=== PATIENT | female | born 1955 | race Caucasian/White ===

== ENCOUNTER 2016-09-08 12:02 | Emergency (ER) | payer MEDICARE, MEDICAID ==
[~2016-09-08] VITALS: Ht 170.2 cm; Wt 136.4 kg
[~2016-09-08 12:02] MED LIST: ALBU8.5H4 INHALATION; BUPR100T15 PO; HYDR-4003 PO; HYDR25TA4 PO; KLO1T PO; LEVO100T6 PO; LOVENOX BRIDGING; METH750T3 PO; MOME13HF3 IH; NITR0.4T SL; OMEP20CA11 PO; OXYB15TA PO; SIMV40TA5 PO; SUMA50TA31 PO; WARF10TA4 PO; ZYL100 PO
[2016-09-08 12:07] VITALS: BP 124/54; PULSE 79; RESP 14; O2SAT 97
[2016-09-08 12:22] LABS: BASOPHILS % (AUTO) 0.6 % (0-3); EOSINOPHILS % (AUTO) 2.3 % (0-5); MONOCYTES % (AUTO) 5.9 % (4-12); Mean Corpuscular Hemoglobin 29.1 pg (27.0-35.0); NEUTROPHILS % (AUTO) 64.9 % (40-74); Platelet Count 201 bil/L (150-400)
--- NOTE | 2016-09-08 12:46 | DRSVH ---
PROCEDURE: X-RAY CHEST ONE VIEW, PORTABLE ([id number]) INDICATIONS: CHEST PAIN TECHNIQUE: One view of the chest was acquired. COMPARISON: [facility], CR, XR CHEST 1VW (PORTABLE), 04/12/2016, 12:22. FINDINGS: Surgical changes and devices: None. Lungs and pleura: No pleural effusions or pneumothorax. Lungs are clear, aside from left upper lobe calcified granuloma which is unchanged. Mediastinum: Mediastinal contours appear normal. Heart size is normal. Bones and chest wall: No suspicious bony lesions. Overlying soft tissues appear unremarkable. IMPRESSION: No acute cardiopulmonary disease. Dictated by: Wilmer Santiago RRA Interpreted: Vickie Graff MD on 09/08/2016 at 12:45 Transcribed by: SAIDA on 09/08/2016 at 12:46 Approved by: Vickie Graff MD, PhD on 09/09/2016 at 11:00
[2016-09-08 12:53] LABS: TROPONIN T 0.01 ug/L (0.0-0.011)
[2016-09-08 13:04] LABS: Magnesium 1.8 mg/dL (1.6-2.6)
[2016-09-08] MEDS ORDERED: Ketorolac 30 mg/mL 2 mL Inj IM ONE (13:10)
--- NOTE | 2016-09-08 13:26 | ED.REPORT ---
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 She has a chronic orthopedic issue with her right foot which greatly restrticts her mobility, and makes her functionally home bound. Her most recent INR was 1.7 yesterday, she has been titrating back up following interupption of her Warfarin for wisdom tooth extraction 2 weeks ago. She denies recent hemoptysis, hormonal therapy, or priti immobilization. Nursing Notes Stated Complaint: CHEST PAIN Chief Complaint: Chest Pain Nursing Notes Reviewed: Yes Allergies: Coded Allergies: Sulfa (Sulfonamide Antibiotics) (Verified Allergy, Severe, resp distress, 02/04/16) Iodinated Contrast Media - Oral and (Unverified Allergy, Mild, 02/04/16) Influenza Virus Vaccines (Verified Allergy, Unknown, breathing difficulty , 04/12/16) hydrocodone (Verified Allergy, Unknown, UNKNOWN, 02/04/16) ibuprofen (Verified Allergy, Unknown, chest swelling and difficulty breathing, 04/12/16) pneumococcal vaccine (Verified Allergy, Unknown, trouble breathing, ) Uncoded Allergies: STATINS (Allergy, Unknown, UNKNOWN, 03/26/15) Scheduled Allopurinol (Allopurinol) 100 Mg Tablet 100 MG PO TID Bupropion (Bupropion) 100 Mg Tablet 100 MG PO BID Hydrochlorothiazide (Hydrochlorothiazide) 25 Mg Tablet 25 MG PO DAILY Levothyroxine (Levothyroxine) 100 Mcg Tablet 100 MCG PO DAILY Mometasone Furoate (Asmanex Hfa) 100 Mcg/Actuation Hfa.aer.ad 13 GM IH DAILY Omeprazole (Omeprazole) 20 Mg Capsule.dr 20 MG PO DAILY Oxybutynin Chloride ER (Oxybutynin Chloride ER) 15 Mg Tab.er.24 15 MG PO BID Simvastatin (Simvastatin) 40 Mg Tablet 40 MG PO HS Sumatriptan Succinate (Imitrex) 50 Mg Tablet 50 MG PO PRN Scheduled PRN Albuterol HFA (Albuterol HFA) 8.5 Gm Hfa.aer.ad 1 PUFF INHALATION Q4H PRN PRN For Shortness of Breath Clonazepam (Clonazepam) 1 Mg Tablet 1 MG PO BID PRN PRN For Anxiety Hydrocodone-Acetaminophen 5-325 mg (Hydrocodone-Acetaminophen 5-325 mg) 1 Each Tablet 1 TABLET PO Q6H PRN PRN For Pain Methocarbamol (Methocarbamol) 750 Mg Tablet 750 MG PO QID PRN PRN For Spasm Nitroglycerin SL (Nitrostat) 0.4 Mg Tab.subl 0.4 MG SL Q5MIN PRN PRN ANGINA Warfarin Sodium (Warfarin Sodium) 10 Mg Tablet 10-15 MG PO DAILY PRN PRN UD Miscellaneous Medications ([Lovenox Bridging]) General Time Seen by MD: 12:45 Chief Complaint Chest pain Hx Obtained From: Patient Arrived By: Walk-in Sudden in Onset?: No Onset Occurred: 1 - 4 hours ago Symptom Duration: Waxes and wanes Location: : Chest left Quality: Aching, Throbbing Radiation: : Does not radiate Severity: Current: Moderate Severity: Maximum: Moderate Recent Healthcare: Recent doctor visit Similar Sx Previous: No Risk Factors )( CAD Risk Stratification Hyperlipidemia Hypertension Known CADNo Amphetamine, No Cocaine, No Diabetes mellitus, No Family history, No Smoking Risk factors reviewed )( TAD Risk Stratification HypertensionNo 1st degree relative, No Aortic valve disease, No Coarctation of aorta, No Susy-Danlos syndrome, No High intensity wt lifting, No Inflamm dx / vasculitis, No Loeys-Moon syndrome, No Marfan's syndrome, No Other genetic predisp, No Pre-exist aortic aneurysm, No , No Turners Syndrome Risk factors reviewed )( PE Risk Stratification Surgery Last 60 DaysNo Coagulation Disorder, No Estrogen Medicine / BCP's, No [place], No Immobilization, No Malignancy, No Other, No , No , No Previous DVT, No Previous PE, No Trauma Risk factors reviewed Past Medical History Past Medical History Obesity, pulmonary embolism in left lung in 2010, on Warfarin. MT, TIA in 1996, Hypothyroid, GERD, diverticulosis, gout. Anxiety Reports: Asthma, Hyperlipidemia, Hypertension Reports: Depression Past Surgical History Bladder surgery IVC filter Parathyroidectomy x3 node removal Foot surgery Reports: Hysterectomy Smoking History Never Smoker Social History Alcohol Use: Denies alcohol use Ambulatory Status Independent Review of Systems Respiratory: Reports: Dyspnea on exertion, Pleuritic pain, Shortness of breath Cardiovascular: Reports: Chest pain Complete sys rev & neg: except as marked. Physical Exam Initial Vital Signs Vital Signs (First) Date Time Temp Pulse Resp B/P Pulse Ox O2 Delivery O2 Flow Rate FiO2 09/08/16 12:07 36.8 79 14 124/54 97 Room Air Initial VS: Reviewed Interpretation & Diagnostics Lab Results Interpretation Result Diagram: 09/08/16 1219 09/08/16 1219 Test 09/08/16 12:19 09/08/16 14:50 09/08/16 15:23 White Blood Count 4.7th/mm3 (3.8-10.1) Red Blood Count 4.33mil/mm3 (3.90-5.20) Hemoglobin 12.6g/dL (12.0-15.6) Hematocrit 39.4% (35.0-46.0) Mean Corpuscular Volume 91.0fL (81-100) Mean Corpuscular Hemoglobin 29.1pg (27.0-35.0) Mean Corpuscular Hemoglobin Concent 32.0% (32.0-37.0) Red Cell Distribution Width 14.5% (12.3-15.4) Platelet Count 201bil/L (150-400) Neutrophils (%) (Auto) 64.9% (40-74) Lymphocytes (%) (Auto) 26.3% (14-46) Monocytes (%) (Auto) 5.9% (4-12) Eosinophils (%) (Auto) 2.3% (0-5) Basophils (%) (Auto) 0.6% (0-3) Prothrombin Time 14.4sec (8.1-12.5) Prothromb Time International Ratio 1.34ratio Activated Partial Thromboplast Time 27.6sec (22.8-33.0) D-Dimer < 0.5mg/L (<0.50) Sodium Level 139mEq/L (134-144) Potassium Level 3.8mEq/L (3.5-5.2) Chloride Level 102mEq/L (97-108) Carbon Dioxide Level 24mmol/L (18-29) Blood Urea Nitrogen 10mg/dL (8-27) Creatinine 0.91mg/dL (0.57-1.00) Estimat Glomerular Filtration Rate 90mL/min (>59) Glucose Level 113mg/dL (60-99) Calcium Level 9.1mg/dL (8.5-10.1) Magnesium Level 1.8mg/dL (1.6-2.6) Total Bilirubin 0.3mg/dL (0.0-1.2) Aspartate Amino Transf (AST/SGOT) 18U/L (0-50) Alanine Aminotransferase (ALT/SGPT) 15U/L (0-32) Alkaline Phosphatase 109U/L (25-165) Total Protein 7.1g/dL (6.4-8.4) Albumin 4.0g/dL (3.4-5.0) Hold Urine Received (Received) Troponin T < 0.010ug/L (0.0-0.011) Re-Eval/Medical Decision Med Decision/Clinical Course Patient with Trop negative x2, D-Dimer negative, and improvement with both Toradol and magic mouthwash suggestive of costro-chondritis with likley secondary esophagitis related to her chronic esophageal issues which may be referring pain. She has been instructed to seek medical attention is her pain does not improve with NSAIDs, or her breathing or clinical status fails to improve in the coming days. Counseled Regarding: Diagnosis, Lab results, Need for follow-up, When/why to return to ED Discharge & Departure Shift Change Sign-Out Patient Care Transferred: No Discussed Complaint(s): Yes Laboratory Evaluation: Lab evaluation discussed Response to Therapy: Improved Primary Impression: Chest pain, non-cardiac Disposition: Home Discharge Condition All VS Reviewed: Yes Condition: Stable Patient Instructions: Chest Pain (ED) Additional Instructions: If you cough up any blood, your chest pain worsens, or you become increasingly short of breath please come back to the emergency department for further evaluation. At this point it does not appear that you are having an active problem in your heart or lungs based upon our evaluation. This is most likely a combination of inflammation and irritation of the esophagus causing irritation and referred pain to the chest wall. Take Ibuprofen or Acetaminophen as needed for pain. Referrals: Kellee Garcia DO (PCP) EDSupervising Provider for APC: Lamonte Barnett MD Attending Statement Discussed patient with resident and agree with plan as above. EVALUATED PATIENT INDEPENDENTLY AND AGREE WITH PLAN. In brief, 61-year-old female with history of CAD presenting with chest pain since last night. Also history of esophagitis. Her pain resolved with GI cocktail. Troponins negative 2. D- dimer negative. No EKG changes. Likely GI etiology given resolution with GI cocktail and history of esophagitis. We will discharge home with plan to take PPI. copies to: Kellee Garcia David E DO Sep 08, 2016 13:26 Lamonte Barnett MD Sep 08, 2016 18:08
[2016-09-08 13:35] VITALS: BP 129/59; PULSE 77; RESP 22; O2SAT 98
[2016-09-08 14:07] LABS: INR 1.34 ratio
[2016-09-08] MEDS ORDERED: LidocaineVisc 2%:Antacid 1:1 10 mL Syringe PO ONE (15:20)
[2016-09-08 17:02] VITALS: BP 138/69; PULSE 76; RESP 17; O2SAT 98
[2016-10-26] MEDS ORDERED: PANT40TA3 PO (08:45)
== END 2016-09-08 16:20 | disposition home or self-care (01) ==
LOC: SED 12:02
DX: R07.89 Other chest pain (principal); I25.2 Old myocardial infarction; K21.9 Gastro-esophageal reflux disease without esophagitis; I10 Essential (primary) hypertension; E03.9 Hypothyroidism, unspecified; J45.909 Unspecified asthma, uncomplicated; F41.9 Anxiety disorder, unspecified; E78.5 Hyperlipidemia, unspecified; F32.9 Major depressive disorder, single episode, unspecified; E66.9 Obesity, unspecified; Z87.39 Personal history of other diseases of the musculoskeletal system and connective tissue; Z87.19 Personal history of other diseases of the digestive system; Z86.711 Personal history of pulmonary embolism; Z86.73 Personal history of transient ischemic attack (TIA), and cerebral infarction without residual deficits; Z68.42 Body mass index [BMI] 45.0-49.9, adult; Z74.09 Other reduced mobility; Z79.01 Long term (current) use of anticoagulants; Z88.5 Allergy status to narcotic agent; Z88.8 Allergy status to other drugs, medicaments and biological substances; Z91.041 Radiographic dye allergy status; Z88.7 Allergy status to serum and vaccine; Z88.2 Allergy status to sulfonamides
CPT/HCPCS: 36415; 71010; 80053; 83735; 84484; 85025; 85379; 85610; 85730; 93005; 96372; 99285; J1885